=== PATIENT | male | born 1985 | race Caucasian/White ===

== ENCOUNTER → 2018-07-31 | Outpatient (CLI) | END | disposition home or self-care (01) ==

== ENCOUNTER 2018-11-02 05:33 | Day surgery (SDC) | payer OTHER ==
[2018-10-30 16:34] VITALS: BMI 33.8
[~2018-11-02] VITALS: Ht 190.5 cm; Wt 122.1 kg
[2018-11-02] VITALS (18 sets, daily range): BP systolic 93–140; BP diastolic 49–77; PULSE 60–98; RESP 16–17; Ht 190.5 cm; Wt 122.1 kg
--- NOTE | 2018-11-02 05:50 | HPN ---
Date/Time of Note Date/Time of Note DATE: 11/02/18 TIME: 05:50 Interval H&P Admission Note Pt. seen H&P reviewed: No system changes OMEGA NEUMANN MD Nov 02, 2018 05:50
--- NOTE | 2018-11-02 05:52 | OPR ---
Date/Time of Note Date/Time of Note DATE: 11/02/18 TIME: 05:50 Operative Report Procedure Date: Nov 02, 2018 Preoperative Diagnosis Right hip labral tear Postoperative Diagnosis 1. Right hip labral tear 2. Right hip impingement 3. Right hip Operation/Procedure Performed 1. Right hip arthroscopic labral repair 2. Right hip arthroscopic femoral neck resection Surgeon see signature line Cold Roll Catcher Dave Carrera PA-C Second Cold Roll Catcher: BOWEN MARVIN Anesthesia Type: general Estimated Blood Loss: minimal Transfusion none Specimen none Grafts/Implants none Complications none Pt Condition Post Procedure: stable Disposition: PACU Procedure Description INDICATIONS FOR PROCEDURE AND SUMMARY: This patient has the clinical problem of femoroacetabular impingement. Essentially, there is an overgrowth of the femoral head and neck junction that is leading to the clinical problem of a torn labrum with its mechanical symptomatology and pain. The surgical procedure involves first a diagnostic arthroscopy and debridement or repair of the labral tear, followed by a separate entrance into the area of the impingement lesion. The hip is divided into two separate compartments termed the central and peripheral compartments. Traditionally, the procedures performed in the central compartment include labral debridement, synovectomy, and chondroplasty. The procedure described as a femoral neck resection includes treatment of the central compartment problems as well as re-positioning the extremity, starting new portals in the peripheral compartment (using fluoroscopic guidance once again), completing a diagnostic arthroscopy of this compartment and then finally resection of the femoral neck impingement lesion that is present. The concept of the procedure is somewhat like the evaluation of the shoulder where the glenohumeral compartment is evaluated, followed by the subacromial compartment. BUILDING MAINTENANCE SUPERINTENDENT SURGEON: Dave Carrera PA-C was asked to be present at my request as a result of the significant surgical complexity associated with this procedure. Specifically, the arthroscopic resection of the femoral neck requires expert assistance with respect to the positioning of the arthroscope, which is a 70-degree arthroscope, while the surgeon exchanges instruments to perform the resection and labral repair. In my opinion, the assistance offered by a surgical oncologist is not sufficient as a result of their lack of training with these instruments. Dave should therefore be compensated for his time. PROCEDURE: Following the administration of general anesthesia supplemented with local anesthetic, the patient was placed in the supine position on the [employer] hip traction device. All prominences were properly padded, including the perineum and the ipsilateral arm. Examination of the right hip revealed a range of motion of 30 degrees of internal rotation with 90 of flexion. The right hip was prepped and draped in the usual sterile fashion. The leg was then placed in traction. Under fluoroscopic guidance, anterior and anterolateral portals were then established in the central compartment. CENTRAL COMPARTMENT DIAGNOSTIC: Examination revealed diffuse areas of grade 2 and 3 chondral delamination . The area extended from the 12:00 to the 9 o'clock position with 7-8 mm into the articular surface of the acetabulum. The labrum was detached in that same arc. The ligamentum teres was moderately synovitic with a partial tear. The femoral cartilage revealed mild diffuse grade 2 chondral changes particularly laterally. CENTRAL COMPARTMENT PROCEDURE: The shaver and the ablator were then inserted. A limited capsulotomy was then performed over the area of the labral detachment. The sublabral recess was then cleared of soft tissue there and a bony resection of the anterior inferior iliac spine was then undertaken back to a normal configuration. Endoscopic and fluoroscopic visualization were used for confirmation. Following the resection and preparation, the labral repair was undertaken. 2 circumferential sutures then passed around the labrum. Each was incorporated into a Arthrex Push Lock anchor. The 2 anchors were impacted, and the suture advanced and a solid repair was completed. Flexion of the leg after removal of traction showed a good labral seal. The arthroscopic equipment was then removed. The leg was taken out of traction and repositioned to 45 of flexion with neutral rotation. The anterior portal was then used for entry into the peripheral compartment while using fluoroscopic localization for the appropriate portal position along the femoral neck. PERIPHERAL COMPARTMENT DIAGNOSTIC: Endoscopic examination revealed a good labral seal. Further evaluation revealed the peripheral femoral cartilage diffuse grade 2 changes. With regards to a cam lesion, there was none with a spherical head in visualizing from the periphery. The arthroscopic equipment was then removed, following thorough irrigation of the joint to assure that all bony debris was cleared. The wounds were closed using #4-0 Monocryl sutures, followed by a sterile dressing. The patient was then extubated and transported to the recovery room in stable condition, having tolerated the procedure well. OMEGA NEUMANN MD Nov 02, 2018 05:52
[2018-11-02] MEDS ORDERED: DEXAMETHASONE 1 MG TAB PO ONE (06:30)
[2018-11-02] MEDS ORDERED: BUPIVACAINE 0.5% (SDV) 30 ML, morphine SULFATE (PF) 8 MG, EPINEPHrine 0.3 MG, KETOROLAC... IRR SCH ×7 (06:30)
[2018-11-02] MEDS ORDERED: CEFAZOLIN 2 GM/50 ML (PMX) 50 ML IVPB ONE (06:30)
[2018-11-02] MEDS ORDERED: GABAPENTIN 300 MG CAP PO ONE (06:30)
[2018-11-02] MEDS ORDERED: TRANEXAMIC ACID 1GM/100ML(PMX) 100 ML IVPB ONE (06:30)
--- NOTE | 2018-11-02 06:40 | PREAC ---
Date/Time of Note Date/Time of Note DATE: 11/02/18 TIME: 06:39 Anesthesia Eval and Record Evaluation Time Pre-Procedure Interview DATE: 11/02/18 TIME: 06:39 Age 33 Sex male NPO: 8 hrs Preoperative diagnosis R hip pain Planned procedure R hip arthroscopy Past Medical History Past Medical History: Includes Cardio: Arrythmia (h/o ablation) Surgery & Anesthesia Issues No known issue Meds Anticoagulation: No Beta Esteban within 24 hr: No Reason Beta Esteban not given: Pt. not on B-Esteban Current Medications Cefazolin Sodium/ Dextrose 50 ml @ 100 mls/hr PRE-OP ONCE IVPB ; Start 11/02/18 at 06:30; Stop 11/02/18 at 06:59 Tranexamic Acid 100 ml @ 200 mls/hr Pre-op ONCE IVPB ; Start 11/02/18 at 06:30; Stop 11/02/18 at 06:59 Meds reviewed: Yes Allergies Coded Allergies: No Known Allergy (Unverified , 11/01/18) MAO DIAZ AT MD'S OFFICE. 11/01 1126 Allergies Reviewed: Yes Labs/Studies Labs Reviewed: Reviewed by anesthesiologist test: N/A Studies: ECG, CXR Pre-procedure Exam Last vitals Vital Signs Date Temp Pulse Resp B/P (MAP) Pulse Ox O2 O2 Flow FiO2 Time Delivery Rate 11/02/18 97.8 60 16 140/77 97 Room Air 06:30 (98) Airway: Adequate mouth opening, Adequate thyromental dist Mallampati: Mallampati III Teeth: Normal Lung: Normal Heart: Normal ASA Physical Status ASA physical status: 2 Emergency: None Planned Anesthetic General/MAC: LMA Planned Pain Management Parenteral pain med, Local by surgeon Pre-operative Attestations Prior to commencing anesthesia and surgery, the patient was re-evaluated, there was verification of: *The patient's identity *The results of appropriate recent lab work and preoperative vital signs *The above evaluation not changing prior to induction *Anesthetic plan, risk benefits, alternative and complications discussed with patient/family; questions answered; patient/family understands, accepts and wishes to proceed. GILMAR BEE MD Nov 02, 2018 06:40
[2018-11-02] MEDS ORDERED: PROPOFOL 20 ML ONE (06:43)
[2018-11-02] MEDS ORDERED: LIDOCAINE 2% (SDV) 5 ML INJ ONE (06:43)
[2018-11-02] MEDS ORDERED: FENTAnyl 50 MCG/ML VIAL ONE (06:43)
[2018-11-02] MEDS ORDERED: MIDAZOLAM 1 MG/ML 2 ML INJ ONE (06:43)
[2018-11-02] MEDS ORDERED: ONDANSETRON 4 MG INJ ONE (06:45)
[2018-11-02] MEDS ORDERED: FENTAnyl 50 MCG/ML VIAL IV PRN ×2 (07:00)
[2018-11-02] MEDS ORDERED: LABETALOL HCL 20MG INJ ONE (07:00)
[2018-11-02] MEDS ORDERED: DEXAMETHASONE 4 MG/ML 5 ML INJ ONE (07:00)
[2018-11-02] MEDS ORDERED: MEPERIDINE 25 MG INJ IV PRN (07:00)
[2018-11-02] MEDS ORDERED: ONDANSETRON 4 MG INJ IV PRN (07:00)
[2018-11-02] MEDS ORDERED: CEFAZOLIN 1 GM INJ ONE (07:00)
[2018-11-02] MEDS ORDERED: METOCLOPRAMIDE 10 MG INJ ONE (07:00)
[2018-11-02] MEDS ORDERED: HYDROmorphONE 1 MG/5 ML IV SYRINGE IV PRN ×2 (07:00)
[2018-11-02] MEDS ORDERED: IPRATROPIUM (NEB) 0.5 MG/2.5 ML AMP HHN PRN (07:00)
[2018-11-02] MEDS ORDERED: PROPOFOL 200 MG INJ ONE (07:00)
[2018-11-02] MEDS ORDERED: DIPHENHYDRAMINE 50 MG INJ IV PRN (07:00)
[2018-11-02] MEDS ORDERED: LEVALBUTEROL (NEB) 1.25 MG/0.5 ML AMP HHN PRN (07:00)
[2018-11-02] MEDS ORDERED: HYDROmorphONE 2 MG/ML SYG ONE (07:27)
[2018-11-02] MEDS ORDERED: hydrALAzine 20 MG INJ ONE (07:33)
[2018-11-02] MEDS ORDERED: EPINEPHrine 1 MG/ML 30 ML INJ ONE (07:37)
--- NOTE | 2018-11-02 08:32 | PDOCDIS ---
Discharge Instructions DIAGNOSIS Discharge Diagnosis hIP LABRAL TEAR CONDITION [id number] Patient Condition: [id number] Good HOME CARE INSTRUCTIONS: [id number] Diet Instructions: [id number] Regular ACTIVITY: [id number] Activity Restrictions: [id number] Rest between Activity Keep Limb Elevated [id number] Bathing Restrictions: [id number] Shower FOLLOW UP/APPOINTMENTS Follow-up Plan 2 weeks SCHOOL/WORK RELEASE May return to School/Work with: With Restrictions School/Work Release Comment: Foot flat weightbearing with crutches for four weeks OMEGA NEUMANN MD Nov 02, 2018 08:32
--- NOTE | 2018-11-03 08:06 | PAC ---
Date/Time of Note Date/Time of Note DATE: 11/03/18 TIME: 08:06 Post-Anesthesia Notes Post-Anesthesia Note Last documented vital signs Vital Signs Date Temp Pulse Resp B/P (MAP) Pulse Ox O2 O2 Flow FiO2 Time Delivery Rate 11/02/18 98.1 10:44 11/02/18 86 16 119/66 97 Room Air 10:03 (83) 11/02/18 8.0 08:46 Activity: WNL Respiratory function: WNL Cardiovascular function: WNL Mental status: Baseline Pain reasonably controlled: Yes Hydration appropriate: Yes Nausea/Vomiting absent: Yes GILMAR BEE MD Nov 03, 2018 08:06
--- NOTE | 2018-11-03 14:22 | RADRPT ---
Vent Rate: 60 bpm RR Interval: 0 msec UT Interval: 160 msec QRS Duration: 108 msec QT Interval: 412 msec QTC Interval: 412 msec P-R-T [place]: 33 - 70 - 65 degrees Normal sinus rhythm with sinus arrhythmia Normal ECG Electronically Signed By: Guicho Ortiz
== END 2018-11-02 11:30 | disposition home or self-care (01) ==
LOC: SDS 05:33
PROVIDERS: ATTEND Orthopaedic Surgery
DX: S73.191D Other sprain of right hip, subsequent encounter (principal); X58.XXXD Exposure to other specified factors, subsequent encounter; M25.851 Other specified joint disorders, right hip; I49.9 Cardiac arrhythmia, unspecified
CPT/HCPCS: 29914; 29916; 73530; 93005; J0171; J0360; J0690; J0735; J1170; J1885; J2250; J2274; J2405; J3010; J3370; Z7512; Z7610; J1100; J2765